=== PATIENT | female | born 1980 | race Caucasian/White ===

== ENCOUNTER 2016-07-07 01:11 | Observation (INO) | payer SELFPAY ==
[~2016-07-07 01:11] MED LIST: KETAMINE 100 MG/1 ML - 5 ML ONE; LIDOCAINE MPF 2% - 5 ML (20 MG/1 ML) ONE; MIDAZOLAM 5 MG/1 ML ONE; Sodium Chloride 0.9% 500 ML IV ONE; fentaNYL Inj 250 MCG/5 ML VIAL ONE
[2016-07-07] MEDS ORDERED: METHYLERGONOVINE MALEATE 0.2 MG/1 ML VIAL IM ONE ×2 (01:54→01:55)
--- NOTE | 2016-07-07 01:57 | PDOC ---
Female Problem HPI - General Chief Complaint: Vag Complaint/Bleed, <20WK IUP Stated Complaint: VAG BLEEDING Date Seen by Provider: 07/07/16 Time Seen by Provider: 01:15 Source: POSITIVE: Patient, EMS, Other (Referring Facility) Exam Limitations: POSITIVE: Clinical condition Nurse's Notes Reviewed & Considered: Yes EMS Report Reviewed & Considered: Verbal - History of Present Illness Initial Comments: The patient is a 36-year-old female who presents to the emergency department by ambulance from the [facility]. She presented there earlier tonight with vaginal bleeding. Apparently she started having bleeding and lower abdominal cramping around 6 PM. She is a who is currently at approximately 13 weeks based on last menstrual period of March 31. She states that around 8:00 she passed a large clot/fetus. She states that she has had one previous miscarriage between her children. She apparently started bleeding fairly heavily. She initially tried to take care of this at home. She apparently passed out twice at home and subsequently was brought to the emergency department at [place]. She was evaluated there initially and had extensive hemorrhaging. IVs were established and she was given normal saline. The emergency room physician there Dr. Lopez had contacted Dr. Vargas for transfer here for emergent D&C. He also discussed the patient with me and arrangements were made to bring the patient here emergently. We are ambulance arrived the patient had received 3 L of normal saline. The doctor had done a speculum exam and had removed some tissue and clot. The patient had lost a fair amount of blood there and her blood pressure had dropped into the 70s systolic. Decision was made to start O- blood prior to transfer and one unit was hung and then the patient was transferred emergently to our emergency room. In route the first unit of blood was hanging and the patient's blood pressure continued to drop into the 50s systolic. On arrival here the first unit had been transfused. The patient was awake on arrival. She states that she feels weak and feels bad in general. She is having some abdominal pain. She had been nauseated in route and received Zofran. Past Medical History Past Medical History Reviewed: Other (please comment) (She is generally healthy. She denies any chronic medical problems and denies currently taking any prescription medications. She has had one previous miscarriage and 2 live births. She also has had previous appendectomy.) ROS - Limitations ROS Limitations: No Limitations Constitution: DENIES: Chills, Fever Cardiovascular: REPORTS: Denies Cardiac Symptoms Respiratory: REPORTS: Denies Resp Symptoms Neurological: REPORTS: Denies Neuro Symptoms Gastrointestinal: REPORTS: Abdominal Pain, Nausea. DENIES: Vomitting Eyes: REPORTS: Denies Symptoms ENT: REPORTS: Denies Symptoms Skin: DENIES: Rash Female Genitourinary Exam - General Appearance General Appearance: POSITIVE: Other (On arrival the patient is awake and answers questions. She appears to be quite pale.) - HEENT HEENT: POSITIVE: Head Inspection Nml, Eyes Inspection Nml, Pharynx Inspect. Nml , Other (Pale mucous membranes) - Respiratory Respiratory: POSITIVE: No Respiratory Distress, Breath Sounds Normal - Cardiovascular Cardiovascular: POSITIVE: Regular Rate and Rhythm, Heart Sounds Normal - Abdomen Abdomen: POSITIVE: Soft, Non-Tender, No Distention - Skin Skin: POSITIVE: Intact, No Rash, Pallor - Extremities Extremity: Normal ROM: (All Extremities), Normal Inspection: (All Extremities) - Neurological / Psychological Neurological: POSITIVE: Oriented X3, Motor Normal, Sensation Normal, Other (No focal neurologic deficits) Female Genitourinary Progress - Patient's Progress MDM / ED Course: On arrival the patient's initial blood pressure after transfusion of 1 unit of packed red blood cells and 3 L of normal saline was in the low 80s systolic. Her pulse was around 100. She appears to be quite pale. A second liter of packed red blood cells (O-) was home as well as a unit of FFP. 3 additional units of O- blood was available as well as a second unit of FFP. Dr. Vargas was present when the patient arrived here in the emergency room. A third line was started and we attempted to drop blood however were unsuccessful in drawing blood. Decision was made to transfer the patient to the operating room for definitive treatment. Patient Care Time - Estimated PCT Patient Care Time (In Minutes): 15 Vital Signs - VS Reviewed Vital Signs Reviewed: Yes Discharge Clinical Impression: Vaginal bleeding, Spontaneous , Hypotension Discharge Disposition: Transferred to OR Condition: Critical
[2016-07-07] MEDS ORDERED: Sodium Chloride 0.9% 1,000 ML ONE (02:06)
[2016-07-07] MEDS ORDERED: ceFAZolin 1 GM VIAL ONE (02:07)
[2016-07-07] MEDS ORDERED: oxyCODONE-ACETAMINOPHEN 5-325 TAB PO PRN (02:14)
[2016-07-07] MEDS ORDERED: Sodium Chloride 0.9% 1,000 ML PRIMARY IV SCH (02:15)
--- NOTE | 2016-07-07 02:23 | OB.OP.NOTE ---
Operative Report Surgeon: Felipe Anesthesia Type: General Anesthesia Provider: Benton Hensley CRNA Surgery Date: 07/07/16 Preoperative Diagnosis: Incomplete AB Postoperative Diagnosis: Same Procedure: Suction D&C Estimated Blood Loss (mL): 50 Fluids: 1000 ml Complications: None. Findings at Surgery: The cervix was widely dilated with a large clump of tissue and clot at the os. Once this was removed there was scant additional tissue returned at suction curettage or sharp curettage. Good hemostasis was obtained with removal of the tissue clump. Indications for the Procedure: Incomplete AB with severe hemorrhage. Description of Procedure: The patient was taken to the operating room and placed supine where general laryngeal mask anesthesia was administered. She was then placed in lithotomy position in Mj stirrups. Examination under anesthesia significant for the large clump of tissue at the external os area and palpation of the uterus revealed an anteverted uterus approximately 10 week size. She was prepped and draped in the normal sterile fashion her bladder was emptied of urine with a straight catheter. A weighted speculum was placed in the vagina and the Intralipid the cervix was grasped with a single-tooth tenaculum. A large ring forcep was used to extract the clump of tissue and clot from the cervix. A 10 mm curved suction curette was then used to perform several passages of suction curettage returned scant additional tissue. Sharp curettage was then performed with good cry noted in all 4 quadrants. A final passage of suction curettage returned no further blood or tissue. The tenaculum was removed from the cervix and hemostasis was achieved with 2-0 Vicryl suture at both tenaculum puncture sites. The cervix was then observed for approximately 15 minutes while H&H was obtained. This returned at 8.4 and 24 after 3 L of fluid and 2 units of blood. With very minimal oozing noted from the cervix and inadequate H&H, the procedure was terminated. Sponge lap and needle counts were correct 2. There were no Locations at surgery. The patient left to recovery in good condition. Plan: Routine postop care with overnight observation and likely discharged home in the morning.
--- NOTE | 2016-07-07 02:28 | PDOC ---
History and Physical - History of Present Illness Date and Time of Service: 07/07/16 Chief Complaint: Incomplete AB with hemorrhage History of Present Illness: The patient is a 36-year-old 4 para 2 female at 13 and 6 ounce weeks estimated gestational age by last menstrual period dating. Patient began bleeding at approximate 6:00 PM last night with passage of large clots. Bleeding began progressively heavier until the patient became syncopal. She then presented to the emergency department and [facility] where she was found of be hypotensive with heavy vaginal bleeding. She was transferred here for treatment. Past Medical History Medical History: Unremarkable Surgical History: Appendectomy Substance Use Type: None Alcohol Use: None Medication / Allergies Home Medications: Home Medications Medication Instructions Recorded Confirmed Type Unobtainable [Unobtainable] 07/07/16 07/07/16 History Allergies/Adverse Reactions: Allergies Allergy/AdvReac Type Severity Reaction Status Date / Time No Known Allergies Allergy Verified 07/07/16 01:54 Exam - Vitals Vital Signs: Vital Signs Height 5 ft 7 in Weight 170 lb - General General Appearance: POSITIVE: Severe Distress - Respiratory Respiratory Exam: POSITIVE: Clear to Auscultation - Bilaterally, Breathing Non Labored, Normal To Percussion, Normal to Percussion and Palpation - Cardiovascular Cardiovascular Exam: POSITIVE: RRR, No Murmur, No Clicks, No Gallops, No Rubs - GI/Abdominal GI/Abdominal Exam: POSITIVE: Normal Bowel Sounds, Non Tender, Non Distended, Soft, No Masses, No Hepatomegaly, No Splenomegaly, No Organomegaly Assessment and Plan - Assessment / Plan Additional Assessment/Plan Details: Incomplete AB with severe hemorrhage. Plan suction D&C. The patient was consented in the emergency department and consent form was signed. - Time Time Spent With Patient: Less Than 15 Minutes
[2016-07-07 02:32] LABS: BLOOD UREA NITROGEN 17 mg/dL (7-22); BUN/CREATININE RATIO 28.33 (6-20); CALCIUM 6.3 mg/dL (8.7-10.7); EST GLOMERULAR FILTRATION > 60 (>60 ml/min/1.73m(2))
[2016-07-07] MEDS ORDERED: NORMAL SALINE 10 ML SYRINGE FLUSH IVP PRN ×2 (02:47→04:32)
[2016-07-07] MEDS ORDERED: HYDROmorphone 2 MG/1 ML IVP PRN (02:47)
[2016-07-07] MEDS ORDERED: fentaNYL Inj 100 MCG/2 ML VIAL IVP PRN (02:47)
[2016-07-07] MEDS ORDERED: PROMETHAZINE 25 MG/1 ML VIAL IM PRN (02:47)
[2016-07-07] MEDS ORDERED: Lactated Ringers 1,000 ML PRIMARY IV SCH (03:00)
[2016-07-07 03:02] LABS: BASOPHILS # (AUTO) 0.01 10*3/UL; BASOPHILS % (AUTO) 0.1 % (0-1); EOSINOPHILS # (AUTO) 0 10*3/UL; EOSINOPHILS % (AUTO) 0 % (0-8); HEMATOCRIT 24.9 % (37.0-47.0); HEMOGLOBIN 8.4 g/dL (12.0-16.0); LYMPHOCYTES # (AUTO) 0.42 10*3/uL; MEAN CORPUSCULAR HEMOGLOBIN 30.2 PG (27-31); MEAN CORPUSCULAR HGB CONC 33.7 g/dL (33-37); MEAN CORPUSCULAR VOLUME 89.6 FL (81-99); MEAN PLATELET VOLUME 10.8 FL (7.4-12.2); MONOCYTES # (AUTO) 0.27 10*3/UL (0.3-0.8); MONOCYTES % (AUTO) 2.5 % (5-15); NEUTROPHILS # (AUTO) 10.06 10*3/UL; PLATELET MORPHOLOGY COMMENT NORMAL MORPHOLOGY (NORM); RBC MORPHOLOGY COMMENT NORMAL MORPHOLOGY (NORM); RED BLOOD COUNT 2.78 10^6/uL (4.20-5.40); WBC MORPHOLOGY COMMENT NORMAL MORPHOLOGY (NORM)
[2016-07-07] MEDS: Methylergonovine Tab 0.2 MG TAB PO SCH ×2 (04:43→11:00)
[2016-07-07 07:08] VITALS: RESP 17; TEMP 98
[2016-07-07 09:28] LABS: HEMATOCRIT 22.6 % (37.0-47.0); HEMOGLOBIN 7.8 g/dL (12.0-16.0)
--- NOTE | 2016-07-07 10:02 | DCSUMMARY ---
Hospitalization Summary Admit Date: 07/07/16 Discharge Date: 07/07/16 Primary Diagnosis:: Incomplete AB Hospital Course: The patient was transferred from [facility] via ambulance with an incomplete AB and hemorrhage. She was taken urgently to the OR for suction D&C which resolved her bleeding. She got two units of PRBC before and during the procedure as well as 2 units of FFP. Her H/H this morning is 7.8/22, which is borderline for transfusion. She is able to walk without light-headedness, and her vital signs are normal. She is not bleeding. She would like to avoid transfusion, so she was discharged on PO Iron supplements in good condition. Exam - Vitals Vital Signs: Vital Signs Temperature 98 F Temperature Source Temporal Artery Scan Pulse Rate [Pulse Oximeter] 77 Pulse Rate [Telemetry] 76 Respiratory Rate 17 Blood Pressure [Left Arm] 94/56 Pulse Ox 100 Oxygen Flow Rate 2 Oxygen Delivery Method Nasal Cannula Height 5 ft 7 in Weight 190 lb 12.8 oz
--- NOTE | 2016-07-07 10:04 | PDOC(PROG) ---
Subjective Post Op Day: 0 Pain Management: PO Phan Catheter: No Flatus: Yes Diet: Regular Ambulating: Yes Concerns / Additional Information: H/H 7.11/05 this morning. Pt. is tired but otherwise asymptomatic and able to ambulate. She does not want anymore blood. She is not bleeding this morning. Assesstment / Plan Assessment / Plan: POD 0 after emergent D&C for incomplete AB. Pt. is doing well this morning and is ready for discharge. Discharge to home.
[2016-07-07] MEDS ORDERED: Methylergonovine Tab 0.2 MG TAB PO SCH (12:30)
== END 2016-07-07 11:47 | disposition home or self-care (01) ==
LOC: ER 01:11 → MSOP 01:30 → SDSC 01:30 → MED/SURG 03:15
PROVIDERS: ADMIT Obstetrics & Gynecology; ATTEND Obstetrics & Gynecology
DX: O03.4 Incomplete spontaneous abortion without complication (principal); I95.9 Hypotension, unspecified
CPT/HCPCS: 36415; 59812; 80048; 85014; 85018; 85025; 99284 ×2; J2704; J3010; P9017; 86850; 86900; 86901; 86922; J0690; J2001; J2210; J2250; J7030; J7050; P9016